=== PATIENT | male | born 1960 | race Caucasian/White ===

== ENCOUNTER 2018-02-25 07:48 | Day surgery (SDC) | payer SELFPAY ==
[2018-02-25] VITALS (7 sets, daily range): BP systolic 90–119; BP diastolic 65–83; PULSE 55–62; RESP 16; TEMP 36.2–36.6; O2SAT 94–98; BMI 39.2
--- NOTE | 2018-02-25 09:32 | PCM.OPRPT ---
Report of Operation Date of Procedure: 02/25/18 Pre-Operative Diagnosis: BRBPR Post-Operative Diagnosis: minimal transverse and mild sigmoid diverticulosis Surgery/Procedure Performed:: Colonoscopy Type of Anesthesia:: MAC Anesthesiologist: Roberto Sauer Specimen's removed: none Estimated Blood Loss (mL): none Description of Procedure: Procedure: Colonoscopy After reviewing the risks benefits, the patient was deemed in satisfactory condition to undergo procedure. After obtaining informed consent, the scope was passed under direct visualization. Throughout the procedure, the patient's blood pressure pulse and position saturations were monitored continuously anesthesia. The colonoscope was introduced through the anus and advanced to the cecum, identified by the IC valve and transillumination. The colonoscopy was performed without difficulty. The patient tolerated procedure well. Quality of bowel prep was good. Findings: The perianal and digital rectal exam were normal. Minimal transverse diverticulosis and mild sigmoid diverticulosis was noted, no signs of any bleeding. Otherwise the colon (entire examined portion) appeared normal. Retroflexed view of the distal rectum and anal verge was normal and showed no anal or rectal abnormalities Impression: 1. Minimal transverse colon diverticulosis and mild sigmoid colon diverticulosis 2. The distal rectal and anal verge were normal on retroflexed view. Recommendations: Repeat colonoscopy in 10 years for screening purposes - Complications none
== END 2018-02-25 10:14 | disposition home or self-care (01) ==
LOC: EN 07:50 → AC 07:51
PROVIDERS: Family Provider Family Medicine; PCP Family Medicine; Visit Provider Surgery
PROC: 0DJD8ZZ Inspection of Lower Intestinal Tract, Via Natural or Artificial Opening Endoscopic (ICD-10-PCS; CPT 45378; principal; 2018-02-25 08:55)
DX: K57.30 Diverticulosis of large intestine without perforation or abscess without bleeding (principal); G25.81 Restless legs syndrome; Z79.82 Long term (current) use of aspirin; Z79.899 Other long term (current) drug therapy; Z86.718 Personal history of other venous thrombosis and embolism; Z86.711 Personal history of pulmonary embolism
CPT/HCPCS: 45378; J7120